=== PATIENT | female | born 1990 | race Caucasian/White ===

== ENCOUNTER 2017-03-25 02:52 | Emergency (ER) | payer BC ==
[~2017-03-25] VITALS: Ht 167.6 cm; Wt 102.0 kg
[~2017-03-25 02:52] MED LIST: BENTYL10 MG PO; CITALOPRAM HBR40 MG PO; NUVARING VAGIN1 EACH VG; PRILOSEC20 MG PO
[2017-03-25 03:40] LABS: HEMATOCRIT 41.8 % (36.0-46.0); MCH 29.3 PG (29.0-34.0); MCHC 32.8 G/DL (30.0-36.0); MCV 89.3 FL (83-99); MEAN PLAT.VOLUME 10.4 uM^3 (9.5-12.4); PLATELET COUNT 298 K/uL (156-360); RBC DIS.WIDTH-CV 12.4 % (11.8-14.6); RED BLOOD COUNT 4.68 M/uL (3.80-5.20); WHITE BLOOD COUNT 8.6 K/uL (4.1-10.2)
[2017-03-25 04:32] LABS: CHLORIDE 105 mEq/L (99-109); SODIUM 139 mEq/L (136-147)
[2017-03-25 04:34] LABS: GLUCOSE 87 mg/dL (70-99)
[2017-03-25 04:35] LABS: ANION GAP 10 MEQ/L (2-14)
[2017-03-25 04:36] LABS: TOTAL BILIRUBIN 0.3 mg/dL (0.0-1.0)
[2017-03-25 04:37] LABS: ALKALINE PHOSPHATASE 83 IU/L (3-129)
[2017-03-25 04:38] LABS: GFR ESTIMATE (CALCULATED) > 59 mL/min/
[2017-03-25 04:39] LABS: UREA NITROGEN (BUN) 11 mg/dL (9-23)
[2017-03-25 04:47] LABS: QUANTITATIVE HCG < 4.0 MIU/ML
[2017-03-25 05:28] LABS: ADD MIUA? YES; BILIRUBIN NEGATIVE; BLOOD MODERATE; COLOR YELLOW ((YELLOW)); GLUCOSE (STRIP) NEGATIVE; KETONES NEGATIVE; LEUKOCYTES NEGATIVE; NITRITE NEGATIVE; PROTEIN (STRIP) NEGATIVE; SPECIFIC GRAVITY 1.023 (1.000-1.030); UROBILINOGEN 0.2 MG/DL (0.2-1.0)
[2017-03-25] MEDS ORDERED: NORCO 5/3251 TABLET PO (05:52)
[2017-03-25] MEDS ORDERED: MOTRIN600 MG PO (05:52)
[2017-03-25 06:08] VITALS: BP 119/71
[2017-03-25 06:17] LABS: BACTERIA 3+ /HPF; EPITHELIAL CELLS 1+ /HPF; MUCUS 2+ /LPF; RED BLOOD CELLS 40-50 /HPF (0-5); UCUL ADDED? YES
== END 2017-03-25 06:10 | disposition home or self-care (01) ==
LOC: EME 02:52
DX: N83.201 Unspecified ovarian cyst, right side (principal)
CPT/HCPCS: 76856; 80053; 81003; 84702; 85027; 87086; 99281; 99284; J1885

== ENCOUNTER 2017-08-26 06:21 | Emergency (ER) | payer BC ==
[~2017-08-26] VITALS: Ht 167.6 cm; Wt 107.2 kg
[~2017-08-26 06:21] MED LIST changes: +MOTRIN600 MG PO; +NORCO 5/3251 TABLET PO
[2017-08-26 06:38] LABS: APPEARANCE SL.HAZY ((CLEAR)); BILIRUBIN NEGATIVE; BLOOD MODERATE; COLOR YELLOW ((YELLOW)); GLUCOSE (STRIP) NEGATIVE; KETONES NEGATIVE; LEUKOCYTES TRACE; NITRITE NEGATIVE; PROTEIN (STRIP) NEGATIVE; SPECIFIC GRAVITY 1.017 (1.000-1.030); UROBILINOGEN 0.2 MG/DL (0.2-1.0)
[2017-08-26 06:43] LABS: BACTERIA 2+ /HPF; EPITHELIAL CELLS 1+ /HPF; HYALINE CASTS 0-5 /LPF; MUCUS 1+ /LPF; RED BLOOD CELLS TNTC /HPF (0-5); UCUL ADDED? YES
[2017-08-26 06:48] LABS: HEMATOCRIT 41.2 % (36.0-46.0); HEMOGLOBIN 13.7 G/DL (11.9-15.5); MCH 29.9 PG (29.0-34.0); MCHC 33.3 G/DL (30.0-36.0); PLATELET COUNT 268 K/uL (156-360); RBC DIS.WIDTH-CV 12.7 % (11.8-14.6); RBC DIS.WIDTH-SD 41.4 % (39-53); RED BLOOD COUNT 4.58 M/uL (3.80-5.20); WHITE BLOOD COUNT 7.3 K/uL (4.1-10.2)
[2017-08-26 07:12] LABS: ALBUMIN 4.1 G/DL (3.2-4.8); CHLORIDE 104 MEQ/L (99-109); POTASSIUM 3.9 MEQ/L (3.7-5.4); SODIUM 138 MEQ/L (136-147); TOTAL BILIRUBIN 0.3 MG/DL (0.0-1.0)
[2017-08-26 07:18] LABS: ALKALINE PHOSPHATASE 62 IU/L (3-129); ALT (GPT) 28 IU/L (3-49); AST (GOT) 17 IU/L (2-34); CREATININE 0.7 MG/DL (0.6-1.3); GFR ESTIMATE (CALCULATED) > 59 mL/min/; GLUCOSE 90 mg/dL (70-99); TOTAL PROTEIN 6.8 G/DL (6.4-8.3); UREA NITROGEN (BUN) 6 mg/dL (9-23)
[2017-08-26] MEDS ORDERED: MACROBID100 MG PO (09:26)
[2017-08-26 10:14] VITALS: BP 131/78
== END 2017-08-26 10:15 | disposition home or self-care (01) ==
LOC: EME 06:21
DX: O23.41 Unspecified infection of urinary tract in pregnancy, first trimester (principal); O20.0 Threatened abortion; O99.341 Other mental disorders complicating pregnancy, first trimester; F32.9 Major depressive disorder, single episode, unspecified; Z3A.01 Less than 8 weeks gestation of pregnancy; Z87.42 Personal history of other diseases of the female genital tract; Z79.3 Long term (current) use of hormonal contraceptives
CPT/HCPCS: 76801; 80053; 81003; 84702; 85027; 87086; 99281; 99285

== ENCOUNTER 2018-01-20 10:06 | Emergency (ER) | payer BC ==
[~2018-01-20] VITALS: Ht 167.6 cm; Wt 11.9 kg
[~2018-01-20 10:06] MED LIST changes: +MACROBID100 MG PO
[2018-01-20 10:58] LABS: HEMATOCRIT 34.3 % (36.0-46.0); HEMOGLOBIN 11.7 G/DL (11.9-15.5); MCH 29.7 PG (29.0-34.0); MCHC 34.1 G/DL (30.0-36.0); MCV 87.1 FL (83-99); PLATELET COUNT 227 K/uL (156-360); RBC DIS.WIDTH-SD 41.1 % (39-53); RED BLOOD COUNT 3.94 M/uL (3.80-5.20); WHITE BLOOD COUNT 8.3 K/uL (4.1-10.2)
[2018-01-20 11:13] LABS: CHLORIDE 110 mEq/L (99-109); POTASSIUM 4.1 mEq/L (3.7-5.4); SODIUM 140 mEq/L (136-147)
[2018-01-20 11:15] LABS: ALBUMIN 3.2 g/dL (3.2-4.8)
[2018-01-20 11:17] LABS: GLUCOSE 92 mg/dL (70-99); TOTAL BILIRUBIN 0.3 mg/dL (0.0-1.0); TOTAL PROTEIN 6.1 g/dL (6.4-8.3)
[2018-01-20 11:19] LABS: APPEARANCE SL.HAZY ((CLEAR)); BILIRUBIN NEGATIVE; BLOOD MODERATE; COLOR YELLOW ((YELLOW)); GLUCOSE (STRIP) NEGATIVE; KETONES NEGATIVE; LEUKOCYTES TRACE; NITRITE NEGATIVE; PROTEIN (STRIP) NEGATIVE; SPECIFIC GRAVITY 1.013 (1.000-1.030); UROBILINOGEN 0.2 MG/DL (0.2-1.0)
[2018-01-20 11:21] LABS: ALKALINE PHOSPHATASE 68 IU/L (3-129); CREATININE 0.7 mg/dL (0.6-1.3); GFR ESTIMATE (CALCULATED) > 59 mL/min/
[2018-01-20 11:22] LABS: AST (GOT) 17 IU/L (2-34); UREA NITROGEN (BUN) 5 mg/dL (9-23)
[2018-01-20 11:24] LABS: ALT (GPT) 11 IU/L (3-49)
[2018-01-20 11:24] LABS: BACTERIA RARE /HPF; EPITHELIAL CELLS 1+ /HPF; MUCUS 1+ /LPF; RED BLOOD CELLS TNTC /HPF (0-5); UCUL ADDED? YES; WHITE BLOOD CELLS 0-5 /HPF (0-5)
[2018-01-20 11:29] LABS: QUANTITATIVE HCG 5677.9 MIU/ML
[2018-01-20 12:47] VITALS: BP 129/59
== END 2018-01-20 12:48 | disposition home or self-care (01) ==
LOC: EME 10:06
DX: O26.832 Pregnancy related renal disease, second trimester (principal); N20.0 Calculus of kidney; Z3A.27 27 weeks gestation of pregnancy; O99.282 Endocrine, nutritional and metabolic diseases complicating pregnancy, second trimester; E06.3 Autoimmune thyroiditis; O99.342 Other mental disorders complicating pregnancy, second trimester; F32.9 Major depressive disorder, single episode, unspecified
CPT/HCPCS: 76770; 80053; 81003; 84702; 85027; 87086; 99281; 99284